=== PATIENT | male | born 1950 | race Caucasian/White ===

== ENCOUNTER 2016-10-29 05:51 | Outpatient (CLI) | payer BC, MEDICARE ==
[~2016-10-29] VITALS: Ht 182.9 cm; Wt 97.7 kg
[2016-10-29] MEDS ORDERED: VALIUM5 MG PO (06:51)
[2016-10-29] MEDS ORDERED: NAPROSYN500 MG PO (06:51)
[2016-10-29] MEDS ORDERED: OMEPRAZOLE40 MG PO (06:52)
[2016-10-29] MEDS ORDERED: PREDNISONE5 MG PO (06:52)
[2016-10-29 07:02] VITALS: BP 138/87; Ht 182.9 cm; Wt 97.7 kg
[2016-10-29 07:24] LABS: HEMATOCRIT 53.3 % (42.0-54.0); HEMOGLOBIN 18.5 g/dL (13.5-17.5); MCH 31.7 pg (26.0-34.0); MCHC 34.7 g/dL (31.0-37.0); MCV 91.4 fL (80.0-100.0); MEAN PLATELET VOLUME 10.9 fL (7.4-10.4); RBC 5.83 10x6/uL (4.20-6.10); RDW 13.6 % (11.5-14.5); WBC 8.6 10x3/uL (4.8-10.8)
--- NOTE | 2016-10-29 09:46 | NUR ---
0840-RECD FROM MRI. 0850-REGULAR BREAKFAST SERVED. 0910-UP TO BATHROOM. VOIDS. 0915-IV D/C AND DISCHARGE INSTRUCTIONS REVIEWED. 0930-D/C HOME VIA WHEELCHAIR.
== END 2016-10-29 09:30 | disposition home or self-care (01) ==
LOC: D.OPS 05:51 → D.MRI 08:00 → D.OPS 09:30
PROVIDERS: Anesthesiology
DX: M79.1 Myalgia (principal)

== ENCOUNTER → 2019-12-12 10:45 | Outpatient (CLI) | payer MEDICARE, OTHER ==
[2016-10-29 07:02] VITALS: BMI 29.2
[~2019-12-12 10:45] MED LIST: NAPROSYN500 MG PO; OMEPRAZOLE40 MG PO; PREDNISONE5 MG PO; VALIUM5 MG PO
== END | disposition home or self-care (01) ==
LOC: D.CT 10:45
PROVIDERS: ATTEND Family Medicine
DX: I65.22 Occlusion and stenosis of left carotid artery (principal)